=== PATIENT | male | born 1965 | race Two or more races ===

== ENCOUNTER 2017-04-08 22:32 | Emergency (ER) | payer SELFPAY ==
[2017-04-08] MEDS ORDERED: PROPARACAINE 0.5% 15 ML OPHT DROP ONE (22:51)
[2017-04-08] MEDS ORDERED: FLUORESCEIN SODIUM 1 MG STRIP OP ONE (22:52)
[2017-04-08 22:54] VITALS: TEMP 98.8
--- NOTE | 2017-04-08 22:54 | EDPHY ---
H & P Stated Complaint: L eye pain Time Seen by Provider: 04/08/17 22:44 HPI/ROS: Chief Complaint: Left eye pain HPI: 51-year-old male presenting with 2 days of burning and aching pain in his left eye. He has been having some tearing. 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 He has not had any vision changes. Discomfort at worst is a 5/10. He has not been having any discharge or waking up with he has eye matted shut. He he does not wear glasses or contacts. Does not have a history of prior problems with that I with the exception of a corneal abrasion about 10 years ago. No fevers or chills. No nausea or vomiting. ROS: 10 point Review of Systems is negative except as noted in the HPI. PMH: Denies Social History: No smoking, no alcohol, no recreational drug use Family History: non-contributory Physical Exam: Gen: Awake, Alert, No Distress Eye Exam Visual Acuity: 20:20 OU EOM: Intact OU Visual Johnson: Intact OU Pupil: Equal, round and reactive to light and accomodation OU External: Lids, lashes and margins normal OU Slit Lamp; left eye conjunctiva injected with limbic sparing Iris normal, there is a foreign body in the 7 o'clock position of his cornea left eye, Anterior chambers clear without cells or flare, no hyphema, normal angles Tonometry: 13, 18, 17 - Personal History Current Tetanus/Diphtheria Vaccine: Unsure Current Tetanus Diphtheria and Acellular Pertussis (TDAP): Unsure - Medical/Surgical History Hx Asthma: No Hx Chronic Respiratory Disease: No Hx Diabetes: No Hx Cardiac Disease: No Hx Renal Disease: No Hx Cirrhosis: No Hx Alcoholism: No Hx HIV/AIDS: No Hx Splenectomy or Spleen Trauma: No - Social History Smoking Status: Never smoked Constitutional: Initial Vital Signs Temperature (C) 36.9 C 04/08/17 22:35 Heart Rate 80 04/08/17 22:35 Respiratory Rate 16 04/08/17 22:35 Blood Pressure 133/71 H 04/08/17 22:35 O2 Sat (%) 96 04/08/17 22:35 O2 Delivery Mode Room Air Allergies/Adverse Reactions: No Known Allergies Allergy (Unverified 04/08/17 22:37) Medical Decision Making Procedures: Procedure: Foreign body removal from cornea: Anesthesia: Topical. After verbal consent from the patient, an embedded foreign body was removed from the cornea of the left eye. The foreign body was removed manually using a needle using direct visualization. Following removal there was no significant rust ring. There were no complications and the patient tolerated the procedure well. The procedure was performed by myself. ED Course/Re-evaluation: 51-year-old male with corneal foreign body removed by me. Will send him home on erythromycin ointment. Also send him home on 0.05% proparacaine for the next 72 hours. He will follow up with Ophthalmology on Tuesday for any concerns. Departure - Departure Disposition: Home, Routine, Self-Care Clinical Impression: Corneal foreign body Condition: Good Instructions: Eye Foreign Body (ED), Erythromycin (Into the eye) Additional Instructions: You may use the proparacaine 0.05% eyedrops 1-2 drops every 30 minutes as needed for eye pain for the next 2 days only. Apply erythromycin ointment to your left eye every 4 hours while awake for the next 3 days. Follow up with the marketing planner on Tuesday if you're still having pain, irritation, or any vision changes in that eye. Return to the emergency department for increasing pain or vision changes or any other concerns. Referrals: Alejandra Garvey MD [Medical Doctor] - As per Instructions
[2017-04-08] MEDS ORDERED: ERYTHROMYCIN 0.5% 1 GM OPHT.OINT LEFTEYE ONE (23:32)
[2017-04-08 23:49] VITALS: BP 128/80; PULSE 75; RESP 14; O2SAT 99
== END 2017-04-08 23:49 | disposition home or self-care (01) ==
PROC: 08C8XZZ Extirpation of Matter from Right Cornea, External Approach (ICD-10-PCS; principal; 2017-04-08)
DX: T15.02XA Foreign body in cornea, left eye, initial encounter (principal); X58.XXXA Exposure to other specified factors, initial encounter